=== PATIENT | female | born 1955 | race Caucasian/White ===

== ENCOUNTER 2019-06-27 11:02 | Outpatient (CLI) | payer MEDICARE ==
--- NOTE | 2019-06-27 11:44 | RAD ---
EXAM: XR Lumbar Spine 2 Or 3 View PROVIDED CLINICAL HISTORY: Chronic low back pain. COMPARISON: None FINDINGS: The vertebral body heights and intervertebral disc spaces are within normal limits. A few minimal sca ttered anterior osteophytes are seen. There is straightening of the normal lumbar curvature. No fracture or subluxation is seen involving lumbar spine. Vascular calcifications are seen in the abdom inal aorta and involving the iliac arteries. Multiple phleboliths overlie the pelvis. IMPRESSION: 1. Minimal degenerative changes in the lumbar spine. No fracture or subluxation is seen. Depending on clinical concern, MRI lumbar spine may be helpful for further evaluation.
--- NOTE | 2019-06-27 11:55 | RAD ---
XR Hip Lt 2-3 View INDICATION: Chronic left hip pain COMPARISON: None FINDINGS: Bones: No acute osseous abnormality. Bone mineralization appears within normal limits. Hip joint: There is mild left hip osteoarthrosis. SI joints and symphysis pubis: Radiographically normal. Intrapelvic contents: There is scattered small phleboliths. Surrounding soft tissues: Radiographically normal. IMPRESSION: 1. No acute osseous abnormality.
--- NOTE | 2019-06-27 11:58 | RAD ---
XR Hip Rt 2-3 View INDICATION: Chronic right hip pain COMPARISON: None FINDINGS: Bones: No acute osseous abnormality. Bone mineralization appears within normal limits. Hip joint: There is mild right hip osteoarthrosis SI joints and symphysis pubis: There is mild right SI joint osteoarthrosis. Intrapelvic contents: There are multiple phleboliths within the right hemipelvis Surrounding soft tissues: Radiographically normal. IMPRESSION: 1. No acute osseous abnormality.
--- NOTE | 2019-06-27 11:59 | RAD ---
AP view of the pelvis INDICATION: Chronic hip pain COMPARISON: None. FINDINGS: Bones: No acute fracture or subluxation is evident. Bone mineralization appears within normal limits. Hips: There is mild degenerative change of both hip joints and SI joints SI joints and symphysis pubis: Mild bilateral SI joint osteoarthrosis. Intrapelvic contents: Multiple phleboliths within the lower pelvis. IMPRESSION: No acute osseous abnormality.
== END 2019-06-27 11:03 | disposition home or self-care (01) ==
LOC: MADRAD 11:02
PROVIDERS: ATTEND Nurse Practitioner Family
DX: M47.26 Other spondylosis with radiculopathy, lumbar region (principal)
CPT/HCPCS: 72100; 72170

== ENCOUNTER 2024-07-16 16:36 | Outpatient (CLI) | payer MEDICARE | END 2024-07-16 16:37 | disposition home or self-care (01) | LOC: MADRAD 16:36 | PROVIDERS: ATTEND Nurse Practitioner Family | DX: R09.89 Other specified symptoms and signs involving the circulatory and respiratory systems (principal); J18.9 Pneumonia, unspecified organism; R91.8 Other nonspecific abnormal finding of lung field | CPT/HCPCS: 71046 ==

== ENCOUNTER 2024-07-27 10:21 | Outpatient (CLI) | payer MEDICARE | END 2024-07-27 10:22 | disposition home or self-care (01) | LOC: MADRAD 10:21 | PROVIDERS: ATTEND Nurse Practitioner Family | DX: J18.9 Pneumonia, unspecified organism (principal); J84.10 Pulmonary fibrosis, unspecified | CPT/HCPCS: 71046 ==